=== PATIENT | female | born 1955 | race Caucasian/White ===

== ENCOUNTER 2023-08-10 03:20 | Emergency (ER) | payer MEDICARE, BC, SELFPAY ==
[2023-08-10 03:20] VITALS: BMI 30.8
[2023-08-10 03:22] VITALS: BP 132/60
[2023-08-10 04:33] VITALS: BP 115/79
--- NOTE | 2023-08-10 04:45 | ED.GENMED ---
History of Present Illness
General
Chief Complaint: Visual Problem
Source: patient and family
Exam Limitations: none
Time Seen by Provider: 08/10/23 04:36
Nursing documentation reviewed up to this point in time: agreed with
Travel History
Have you had any contact with someone who has COVID-19?: No
Do you have any symptoms of coronavirus? Fever > 100 degrees, chills, cough, shortness of breath, sore throat, loss of taste or smell, muscle aches, or headache?: No
History of Present Illness
History of Present Illness:
This a pleasant 68-year-old female that presents with left-sided rib pain, shortness of breath leg cramping on the right and tingling on the right arm. She also did have right eye blurriness which has now resolved. Patient flew back from the
[facility] on Thursday evening. She states that the symptoms began after returning home with the exception of the rib pain. While hiking in the [facility] [place], she had a mechanical fall and injured her left rib.
Vital signs are stable. Patient not hypoxic
Nursing note reviewed. I agree with nursing documentation up to this point in time.
Home Meds and allergies reviewed.
NUMBER AND COMPLEXITY OF PROBLEMS ADDRESSED AT THE ENCOUNTER
� Chronic conditions affecting care: Diabetic, syncopal episodes, left bundle branch block, hyperlipidemia
� Acute Exacerbation and/or Progression of Chronic Illness: None
� Differential Diagnosis includes: Electrolyte deficiency, pulmonary embolus, DVT
AMOUNT AND/OR COMPLEXITY OF DATA TO BE REVIEWED AND ANALYZED
I performed an independent evaluation of the following and my interpretation is:
EKG:
CT:CTA chest PE 03/16/2020
IMPRESSION:
CT head:
No evidence for traumatic injury.
No acute intracranial findings
Age-appropriate global cerebral volume loss
CTA chest PE:
No evidence for traumatic injury
Technically adequate contrast opacification of the pulmonary arteries.
No evidence for pulmonary embolism
No acute thoracic aortic pathology
Normal sized heart
Pericardium appears within normal limits
Lungs clear. No evidence for pneumonia or pulmonary edema
Minimal bilateral dependent atelectasis
No pleural effusion or pneumothorax
Post sleeve gastrectomy anatomy
Cholecystectomy
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
Generalized osteopenia
Report faxed directly at 6:25 AM ET
X-rays:
Ultrasound: Ultrasound of the leg is negative for DVT
Laboratory Studies: D-dimer is 1.21
Other:
Review of other/old records: Echocardiogram, 05/14/2023ONCLUSIONS
�1.� Left ventricle: Normal size and low normal to mildly reduced LVEF estimated
�40-50% by visual estimation.� A septal bounce was noted from left bundle branch
�block.� Definity contrast was utilized to improve endocardial definition.�
�2.� Right ventricle: Normal
�3.� Atria: Normal
�4.� Mitral valve: Trace mitral regurgitation
�5.� Aortic valve: Thickened and trileaflet.� Sclerotic.� No aortic
�insufficiency
�6.� Tricuspid valve: No tricuspid regurgitation.� Estimated pulmonary artery
�systolic pressures could not be obtained
�7.� When compared to the most recent echocardiogram from 02/10/2023 the LVEF is
�now estimated 40-50% rather than 35% as estimated on the prior study.� The
�studies are otherwise unchanged.
Clinical information was obtained by an independent historian:
Prescriptions/Medications Considered but not given:
Further testing considered but not performed:
RISK OF COMPLICATIONS AND/OR MORBIDITY OR MORTALITY OF PATIENT MANAGEMENT
Social determinants of health affecting care: Good Social Support
Discussion with other providers:
Escalation of care including admission/observation vs risk of discharge considered:
CRITICAL CARE NOTE:
Total Time (exclusive of procedures):
Update:
Past History
Past History
ED Past Medical History: Arrthythmia (Syncopal event, w/ LOOP), Asthma, Cancer, GERD, Hypercholesterolemia, NIDDM, Hypothyroidism, Psychiatric and Other (Sleep apnea uses CPAP, LBBB, Renal calculs, Anemia)
ED Past Surgical History: Cardiac (Loop recorder), Cholecystectomy, , Orthopedic (Lumbar laminectomy, Left meniscus repair, Left total knee replacement) and Other (gastric lap band with removal, Breast reduction, Vertical sleeve); Negative
Bowel resection
Social History
Tobacco: Non-smoker
Alcohol: Occasional
Drug: None
Personal:
Living: with family
Employment: Retired
Family History
Family History: Diabetes and Hypertension; Negative Sudden
Phy Exam
General Physical Exam
General Presentation: well appearing and mild distress
General age: appears stated age
General Skin: warm
General Habitus: normal
General Mental: alert
General Hydration: appears well hydrated
ENT Exam
ENT Exam: EOMI, pharynx normal, neck supple and normocephalic
Eye Exam
Eye Exam: PERRL, cornea clear and conjunctiva normal
Cardiovascular Exam
Cardiovascular Exam: regular rate/rhythm and no edema
Pulmonary Exam
Pulmonary Exam: lungs clear, no respiratory distress, no rales, no crackles, no rhonchi, no stridor, no wheezing and no cough
Gastrointestinal Exam
Gastrointestinal Exam: normal bowel sounds, non tender, soft and non distended
Palpation: left upper quadrant: Minimal tenderness, left lower quadrant: No tenderness, right upper quadrant: No tenderness, right lower quadrant: No tenderness and generalized: No tenderness
Neurological Exam
Neurological Exam: alert, oriented x3, no motor deficits and speech normal
Musculoskeletal Exam
Musculoskeletal Exam: full ROM and no edema
Skin Exam
Skin Exam: normal color, warm/dry, no rash and no petechia
Psychiatric Exam
Psychiatric Exam: normal mood/affect
Course
Orders/Labs/Results
Orders:
Orders
08/10/23 04:45
CT Chest Pe Study Urgent
Comment:
Reason For Exam: dyspnea, after 10hr flight, L rib trauma
08/10/23 04:49
US Periph Venous LOWER Ext RT Urgent
Comment:
Reason For Exam: calf tenderness s/p flight
08/10/23 04:52
Complete Blood Count/With Diff Urgent
Comprehensive Metabolic Panel Urgent
D-Dimer Urgent
Lipase Urgent
Magnesium Urgent
PTT Urgent
Prothrombin Time Urgent
TSH Urgent
Troponin I Urgent
08/10/23 04:53
CT Head W/o Iv Contrast Urgent
Comment:
Reason For Exam: blurry vision, resolved
08/10/23 06:11
Electrocardiogram (*1) Urgent
Reason for Study: Chest Pain
08/10/23 06:12
EKG- Treatment ONCE
Abnormal Lab Results
08/10/23
04:52
MPV 10.9 H fL
(7.4-10.4)
Abs Immat Gran (auto) 0.1 H 10^3/uL
(0-0.05)
Absolute Monos (auto) 0.7 H 10^3/uL
(0.1-0.6)
Immature Gran % 0.6 H %
(0-0.5)
D-Dimer 1.21 H ug/mlFEU
(0.00-0.50)
BUN 24 H mg/dl
(7-17)
Glucose 142 H mg/dl
(70-99)
08/10/23 04:52
08/10/23 04:52
Vital Signs
Initial and Last Documented VS:
Initial Vital Signs
Temp Pulse Resp BP Pulse Ox
97.4 F 68 18 132/60 100
08/10/23 03:22 08/10/23 03:22 08/10/23 03:22 08/10/23 03:22 08/10/23 03:22
Last Documented Vital Signs
Temp Pulse Resp BP Pulse Ox
97.4 F 68 26 115/79 98
08/10/23 03:22 08/10/23 03:22 08/10/23 04:33 08/10/23 04:33 08/10/23 04:33
*Critical Care Note
Total Time (30-74mins, 75-104mins- exclusive of procedures): Not Applicable
Update Note
Update Note:
Discussed CAT scan and lab work at length with patient and . She is feeling better. She was given incentive spirometer. She was advised to repeat ultrasound should the cramping persist in a week's time. D-dimer was elevated likely from
the fall. Patient resting comfortably in no acute distress at this time. Patient wishes to be discharged home. Discussed return to ER instructions at length with patient and . I feel that she will return should she have any changing or
worsening of symptoms.
ED Attending Note
-
Portions of this chart may have been created with voice recognition software.� Occasional wrong word or��sound alike� substitutions may have occurred due to the inherent limitations of voice recognition software.
Discharge Plan
Departure
Patient Disposition: Home (Routine Discharge)
Date of Disposition: 08/10/23
Time of Disposition: 06:36
Patient with high blood pressure during this ER visit?: No
Condition: Good
Discharge Problem:
Contusion of rib on left side, Leg cramps, Blurred vision
Instructions: How to Use an Incentive Spirometer, Muscle and Bone Pain (DC), Nocturnal (Nighttime) Leg Cramps (DC), Bruised Rib (DC)
Prescriptions:
No Action
levothyroxine 50 MCG tablet
50 mcg PO DAILY
venlafaxine [Effexor XR] 37.5 MG capsule,extended release 24hr
37.5 mg PO DAILY
venlafaxine [Effexor XR] 150 MG capsule,extended release 24hr
150 mg PO DAILY
rosuvastatin 5 MG tablet
5 mg PO Q48H
acetaminophen 650 mg Tablet Extended Release
1,300 mg PO Q12H
Janumet XR 50-500 mg Tablet, Er Multiphase 24 Hr
2 tab PO QPM
Hold Instructions: Resume on 02/12/23.
carvedilol 3.125 mg Tablet
3.125 mg PO BID Qty: 60 11RF
losartan 25 mg Tablet
25 mg PO DAILY Qty: 30 11RF
Referrals:
Karon Pineda MD [Family Provider] -
Activity Restrictions/Additional Instructions:
Tylenol and Motrin for the pain
It was a pleasure meeting you and taking part in your care. We hope for your continued healing and wellness.
Please read discharge instructions in their entirety. However, they are for general education and may not describe your exact diagnosis at discharge. Information on your ER visit and medical conditions were discussed with you along with appropriate
follow up information...
If indicated, please take your medications as instructed and indicated on discharge paperwork.
Please schedule a follow up appointment as directed. Call to schedule an appointment
Please return to the emergency department with ANY change in, persisting, or worsening of symptoms. If any of your symptoms do not improve, or persist, or become more severe within 6-12 hours, please return to the emergency department for further
care.
Please return to the emergency department if you develop a headache, neck pain/stiffness, fever greater than 100.4F, chest pain, shortness of breath, persistent nausea, vomiting, slurred speech, difficulty walking, numbness/tingling, weakness, signs
of infection or any other symptoms that are worrisome to you.
If you have any questions or concerns please do not hesitate to call the Hospital at or E-mail me directly at [email or web address]
Interventions
Interventions:
*Risk Screen - Suicide Last Done: 08/10/23 03:22
*General Assessment Last Done: 08/10/23 04:47
*Neglect/Abuse Screening Last Done: 08/10/23 03:22
*ED COVID-19 Vaccine History Last Done: 08/10/23 04:47
ED-Skin Assessment Last Done: 08/10/23 05:02
ED-Peripheral Vascular Assessment Last Done: 08/10/23 05:10
ED- Neurological Assessment Last Done: 08/10/23 05:02
ED-Musculoskeletal Assessment Last Done: 08/10/23 05:02
ED-EENT Assessment Last Done: 08/10/23 05:02
ED Swallowing Screen Last Done: 08/10/23 05:02
[2023-08-10 05:00] VITALS: BP 117/68
[2023-08-10 05:05] LABS: % Basophils 0.7 % (0-2); % Eosinophils 3.2 % (0-6); % Immature Granulocytes 0.6 % (0-0.5); % Lymphocytes 25.7 % (20.5-51.1); % Monocytes 7.4 % (1.7-9.3); % Neutrophils 62.4 % (42.2-75.2); Absolute Basophils 0.1 10^3/uL (0-0.2); Absolute Eosinophils 0.3 10^3/uL (0-0.7); Absolute Immature Granulocytes 0.1 10^3/uL (0-0.05); Absolute Lymphocytes 2.3 10^3/uL (1.2-3.4); Absolute Monocytes 0.7 10^3/uL (0.1-0.6); Absolute Neutrophils 5.5 10^3/uL (1.4-6.5); Hematocrit 40.8 % (37.0-47.0); Hemoglobin 13.7 g/dL (12.0-16.0); Mean Corp Hgb Conc. 33.6 g/dL (33.0-37.0); Mean Corpuscular Hgb 28.8 pg (27.0-31.0); Mean Corpuscular Volume 85.7 fL (81.0-99.0); Mean Platelet Volume 10.9 fL (7.4-10.4); Nucleated Red Blood Cells % 0 %; Platelet Count 180 10^3/uL (130-400); Red Blood Cell Count 4.76 10^6/uL (4.20-5.40); Red Cell Dist. Width 13.2 % (11.5-14.5); White Blood Cell Count 8.8 10^3/uL (4.8-10.8)
[2023-08-10 05:19] LABS: ALT (SGPT) 18 U/L (0-35); AST (SGOT) 24 U/L (14-36); Albumin 4.5 g/dl (3.5-5.0); Alkaline Phosphatase 71 U/L (38-126); Blood Urea Nitrogen 24 mg/dl (7-17); Calcium 9.5 mg/dl (8.4-10.2); Carbon Dioxide 25 mmol/L (22-30); Chloride 102 mmol/L (98-107); Estimated Creatinine Clearance 90 ml/min; Glucose 142 mg/dl (70-99); Lipase 51 U/L (23-300); Magnesium 1.7 mg/dl (1.6-2.3); Potassium 4.4 mmol/L (3.5-5.1); Sodium 135 mmol/L (135-145); Total Bilirubin 0.7 mg/dl (0.2-1.3); Total Protein 7.1 g/dl (6.3-8.2); eGFR > 60.00
[2023-08-10 05:23] LABS: INR 0.99; PT 12.9 Sec (11.4-14.6)
[2023-08-10 05:24] LABS: APTT 30.6 Sec (23.4-35.0)
[2023-08-10 05:26] LABS: D-Dimer 1.21 ug/mlFEU (0.00-0.50)
[2023-08-10 05:36] LABS: Troponin I < 0.012 ng/ml
[2023-08-10 05:50] LABS: TSH 1.56 uIU/ml (0.47-4.68)
[2023-08-10 06:24] VITALS: BP 131/70
== END 2023-08-10 06:58 | disposition home or self-care (01) ==
LOC: EMR 03:20
PROVIDERS: EMERGENCY PHYSICIAN Student in an Organized Health Care Education/Training Program; FAMILY PHYSICIAN Family Medicine
DX: S20.212A Contusion of left front wall of thorax, initial encounter (principal); R25.2 Cramp and spasm; R06.02 Shortness of breath; H53.8 Other visual disturbances; R20.2 Paresthesia of skin; W19.XXXA Unspecified fall, initial encounter; Y93.01 Activity, walking, marching and hiking; Y92.89 Other specified places as the place of occurrence of the external cause; J45.909 Unspecified asthma, uncomplicated; K21.9 Gastro-esophageal reflux disease without esophagitis; E78.00 Pure hypercholesterolemia, unspecified; E11.9 Type 2 diabetes mellitus without complications; E03.9 Hypothyroidism, unspecified; G47.30 Sleep apnea, unspecified; M85.80 Other specified disorders of bone density and structure, unspecified site; K57.92 Diverticulitis of intestine, part unspecified, without perforation or abscess without bleeding; I44.7 Left bundle-branch block, unspecified; D64.9 Anemia, unspecified; M19.90 Unspecified osteoarthritis, unspecified site; M79.7 Fibromyalgia; Z96.652 Presence of left artificial knee joint; Z87.442 Personal history of urinary calculi; Z86.16 Personal history of COVID-19; Z90.49 Acquired absence of other specified parts of digestive tract; Z98.84 Bariatric surgery status; Z88.8 Allergy status to other drugs, medicaments and biological substances; Z91.030 Bee allergy status
CPT/HCPCS: 99285; 70450; 71275; 80053; 83690; 83735; 84443; 84484; 85025; 85379; 85610; 85730; 93971; Q9967

== ENCOUNTER → 2023-08-17 13:31 | Outpatient (REF) | payer MEDICARE, BC, SELFPAY | LOC: RAD 13:31 | PROVIDERS: ATTENDING PHYSICIAN Nurse Practitioner Family | DX: R07.81 Pleurodynia (principal) | CPT/HCPCS: 71101 ==

== ENCOUNTER → 2023-08-20 06:26 | Day surgery (SDC) | payer MEDICARE, BC, SELFPAY ==
[2023-08-20 07:52] LABS: Glucose - Point of Care 145 mg/dl (70-99)
== END ==
LOC: GI 06:26
PROVIDERS: ATTENDING PHYSICIAN Internal Medicine
DX: K29.70 Gastritis, unspecified, without bleeding (principal); K31.84 Gastroparesis; K44.9 Diaphragmatic hernia without obstruction or gangrene; K21.9 Gastro-esophageal reflux disease without esophagitis; R13.10 Dysphagia, unspecified; R12 Heartburn; Z98.84 Bariatric surgery status
CPT/HCPCS: 43239; 88305; 82962; 88342

== ENCOUNTER → 2023-09-01 14:59 | Outpatient (REF) | payer MEDICARE, BC, SELFPAY | LOC: RAD 14:59 | PROVIDERS: ATTENDING PHYSICIAN Internal Medicine; FAMILY PHYSICIAN Family Medicine | DX: M81.0 Age-related osteoporosis without current pathological fracture (principal) | CPT/HCPCS: 77080 ==

== ENCOUNTER → 2023-09-23 08:54 | Outpatient (REF) | payer MEDICARE, BC, SELFPAY | LOC: HWRAD 08:54 | PROVIDERS: ATTENDING PHYSICIAN Nurse Practitioner Family | DX: R14.0 Abdominal distension (gaseous) (principal) | CPT/HCPCS: 76700 ==

== ENCOUNTER → 2023-09-30 07:16 | Outpatient (REF) | payer MEDICARE, BC, SELFPAY | LOC: HWRAD 07:16 | PROVIDERS: ATTENDING PHYSICIAN Nurse Practitioner Family; REFERRING PHYSICIAN Internal Medicine | DX: R14.0 Abdominal distension (gaseous) (principal) | CPT/HCPCS: 74177; Q9967 ==

== ENCOUNTER → 2023-10-22 08:52 | Outpatient (REF) | payer MEDICARE, BC, SELFPAY ==
[2023-10-22 11:02] LABS: Vitamin D, 25-OH*** 26.3 ng/mL (30-80)
[2023-10-22 11:49] LABS: Microalbumin, Random Urine 0.6 mg/dl (0.6-1.7)
[2023-10-22 11:53] LABS: Glycohemoglobin (HgbA1c) 6.9 % (4.0-5.6)
[2023-10-22 11:59] LABS: Microalbumin/creatinine Ratio 4.3 mg/g
[2023-10-22 12:13] LABS: ALT (SGPT) 14 U/L (0-35); AST (SGOT) 22 U/L (14-36); Albumin 4.3 g/dl (3.5-5.0); Alkaline Phosphatase 64 U/L (38-126); Blood Urea Nitrogen 22 mg/dl (7-17); Calcium 9.7 mg/dl (8.4-10.2); Carbon Dioxide 26 mmol/L (22-30); Chloride 102 mmol/L (98-107); Glucose 142 mg/dl (70-99); Potassium 4.5 mmol/L (3.5-5.1); Sodium 141 mmol/L (135-145); Total Bilirubin 0.6 mg/dl (0.2-1.3); Total Protein 6.7 g/dl (6.3-8.2); eGFR > 60.00
== END ==
LOC: REG 08:52
PROVIDERS: ATTENDING PHYSICIAN Internal Medicine; FAMILY PHYSICIAN Family Medicine; REFERRING PHYSICIAN Internal Medicine Endocrinology, Diabetes & Metabolism
DX: E11.9 Type 2 diabetes mellitus without complications (principal); M81.0 Age-related osteoporosis without current pathological fracture; Z51.81 Encounter for therapeutic drug level monitoring
CPT/HCPCS: 36415; 80053; 82043; 82306; 82570; 83036

== ENCOUNTER → 2023-12-01 14:40 | Outpatient (REF) | payer MEDICARE, BC, SELFPAY | LOC: HWRAD 14:40 | PROVIDERS: ATTENDING PHYSICIAN Internal Medicine Endocrinology, Diabetes & Metabolism; FAMILY PHYSICIAN Family Medicine | DX: E03.9 Hypothyroidism, unspecified (principal) | CPT/HCPCS: 76536 ==

== ENCOUNTER → 2024-01-07 20:16 | Outpatient (REF) | payer MEDICARE, BC, SELFPAY | LOC: MRI 20:16 | PROVIDERS: ATTENDING PHYSICIAN Physician Assistant Surgical; FAMILY PHYSICIAN Family Medicine | DX: M54.12 Radiculopathy, cervical region (principal); M54.2 Cervicalgia; R20.2 Paresthesia of skin | CPT/HCPCS: 72141 ==

== ENCOUNTER → 2024-01-15 07:38 | Outpatient (REF) | payer MEDICARE, BC, SELFPAY ==
[2024-01-15 09:28] LABS: Blood Urea Nitrogen 17 mg/dl (7-17); Carbon Dioxide 28 mmol/L (22-30); Chloride 104 mmol/L (98-107); Glucose 133 mg/dl (70-99); Potassium 4.4 mmol/L (3.5-5.1); Sodium 138 mmol/L (135-145); eGFR > 60.00
== END ==
LOC: REG 07:38
PROVIDERS: ATTENDING PHYSICIAN Internal Medicine Cardiovascular Disease; FAMILY PHYSICIAN Family Medicine; REFERRING PHYSICIAN Internal Medicine Endocrinology, Diabetes & Metabolism
DX: I10 Essential (primary) hypertension (principal)
CPT/HCPCS: 36415; 80048

== ENCOUNTER → 2024-01-19 08:58 | Outpatient (REF) | payer MEDICARE, BC, SELFPAY ==
[2024-01-19 10:10] LABS: % Basophils 0.8 % (0-2); % Eosinophils 3.9 % (0-6); % Immature Granulocytes 0.2 % (0-0.5); % Lymphocytes 30.9 % (20.5-51.1); % Monocytes 7.4 % (1.7-9.3); % Neutrophils 56.8 % (42.2-75.2); Absolute Basophils 0.1 10^3/uL (0-0.2); Absolute Eosinophils 0.2 10^3/uL (0-0.7); Absolute Lymphocytes 1.8 10^3/uL (1.2-3.4); Absolute Monocytes 0.4 10^3/uL (0.1-0.6); Absolute Neutrophils 3.4 10^3/uL (1.4-6.5); Hematocrit 36.7 % (37.0-47.0); Hemoglobin 11.8 g/dL (12.0-16.0); Mean Corp Hgb Conc. 32.2 g/dL (33.0-37.0); Mean Corpuscular Hgb 27.9 pg (27.0-31.0); Mean Corpuscular Volume 86.8 fL (81.0-99.0); Mean Platelet Volume 11.6 fL (7.4-10.4); Nucleated Red Blood Cells % 0 %; Platelet Count 149 10^3/uL (130-400); Red Blood Cell Count 4.23 10^6/uL (4.20-5.40); Red Cell Dist. Width 12.7 % (11.5-14.5)
[2024-01-19 10:43] LABS: ALT (SGPT) 15 U/L (0-35); AST (SGOT) 24 U/L (14-36); Albumin 4.3 g/dl (3.5-5.0); Alkaline Phosphatase 54 U/L (38-126); Blood Urea Nitrogen 16 mg/dl (7-17); Calcium 9.4 mg/dl (8.4-10.2); Carbon Dioxide 29 mmol/L (22-30); Chloride 101 mmol/L (98-107); Glucose 137 mg/dl (70-99); Sodium 140 mmol/L (135-145); Total Bilirubin 0.5 mg/dl (0.2-1.3); Total Protein 6.6 g/dl (6.3-8.2); eGFR > 60.00
[2024-01-19 11:08] LABS: TSH Reflex To Free T4 0.72 uIU/ml (0.47-4.68)
[2024-01-19 13:25] LABS: Glycohemoglobin (HgbA1c) 6.3 % (4.0-5.6)
== END ==
LOC: REG 08:58
PROVIDERS: ATTENDING PHYSICIAN Nurse Practitioner Family
DX: E11.9 Type 2 diabetes mellitus without complications (principal); I10 Essential (primary) hypertension; E78.2 Mixed hyperlipidemia
CPT/HCPCS: 36415; 80053; 83036; 84443; 85025

== ENCOUNTER → 2024-02-12 09:09 | Outpatient (REF) | payer MEDICARE, BC, SELFPAY ==
--- NOTE | 2024-02-12 11:39 | CARDSERVDEF ---
Echocardiogram with Definity completed after protocol screening completed. Allergies verified.
Patent IV site: right hand with 22g angio on 1st attempt
IV site flushed with 0.9% NaCl pre and post administration.
Diluted bolus method utilized to enhance visualization of ventricular torres.
Total volume given: 2 mL
Patient tolerated all procedures well without complications.
Upon completion of study, IV was removed and pressure held until hemostasis obtained. No complications noted.
== END ==
LOC: RCS 09:09
PROVIDERS: ATTENDING PHYSICIAN Internal Medicine Cardiovascular Disease; FAMILY PHYSICIAN Family Medicine
DX: I42.8 Other cardiomyopathies (principal); R06.09 Other forms of dyspnea
CPT/HCPCS: 93306; Q9957

== ENCOUNTER 2024-02-27 12:00 | Emergency (ER) | payer MEDICARE, BC, SELFPAY ==
[2024-02-27 12:04] VITALS: BP 120/69
--- NOTE | 2024-02-27 13:32 | ED.GENMED ---
History of Present Illness
General
Chief Complaint: Musculo-Skeletal Complaint
Source: patient
Exam Limitations: none
Time Seen by Provider: 02/27/24 13:18
Nursing documentation reviewed up to this point in time: agreed with
History of Present Illness
History of Present Illness:
68 yr old female who just got a pedicure was walking across the street and flip-flops and fell landing on her kneecap. She is unable to bear weight on her right knee. She does complain of small abrasion. Tetanus up-to-date. No other injuries.
She denies hitting her head
Past History
Past History
ED Past Medical History: Arrthythmia (Syncopal event, w/ LOOP), Asthma, Cancer, GERD, Hypercholesterolemia, NIDDM, Hypothyroidism, Psychiatric and Other (Sleep apnea uses CPAP, LBBB, Renal calculs, Anemia)
ED Past Surgical History: Cardiac (Loop recorder), Cholecystectomy, , Orthopedic (Lumbar laminectomy, Left meniscus repair, Left total knee replacement) and Other (gastric lap band with removal, Breast reduction, Vertical sleeve); Negative
Bowel resection
Social History
Tobacco: Non-smoker
Alcohol: Occasional
Drug: None
Personal:
Living: with family
Employment: Retired
Family History
Family History: Diabetes and Hypertension; Negative Sudden
Review of Systems
Review of Systems
Allergies reviewed?: Yes
All Other Systems: ROS reviewed and negative except as documented in HPI and ROS
Constitutional: Reports no symptoms
Musculoskeletal: Reports other (Right knee injury pain abrasion)
Skin: Reports no symptoms
Neurological: Reports no symptoms; Denies headache
Psychiatric: Reports no symptoms
Phy Exam
General Physical Exam
General Presentation: no apparent distress
General age: appears stated age
General Skin: warm and dry
General Habitus: normal
General Mental: alert
General Hydration: appears well hydrated
Neurological Exam
Neurological Exam: alert and oriented x3
Musculoskeletal Exam
Musculoskeletal Exam: other (Right extra stone pulses mild swelling to anterior knee with small abrasion mildly anterior tender however able to straight leg raise off the stretcher able to flex and extend)
Skin Exam
Skin Exam: normal color and warm/dry
Psychiatric Exam
Psychiatric Exam: normal mood/affect
Course
Orders/Labs/Results
Orders:
Orders
02/27/24 12:06
CR Knee- Right 4 Or More View* Urgent
Comment:
Reason For Exam: injury
02/27/24 13:45
Knee Immobilizer Right-Treatme ONCE
Vital Signs
Initial and Last Documented VS:
Initial Vital Signs
Temp Pulse Resp BP Pulse Ox
98.2 F 62 18 120/69 99
02/27/24 12:04 02/27/24 12:04 02/27/24 12:04 02/27/24 12:04 02/27/24 12:04
Last Documented Vital Signs
Temp Pulse Resp BP Pulse Ox
98.2 F 62 18 120/69 99
02/27/24 12:04 02/27/24 12:04 02/27/24 12:04 02/27/24 12:04 02/27/24 12:04
MDM/Problems Addressed
Differential Diagnosis Includes:
Not limited to contusion versus fracture abrasion
MDM/Problems Addressed:
Patient with comminuted fracture to the right kneecap after falling. She describes mechanical fall tripped on flip-flops while walking across the street. Denies hitting head. She has a comminuted fracture of the patella however able to straight
leg raise and has good range of motion will clean abrasion with soap and water dressed with antibiotic ointment and sterile dressing will apply immobilizer and DC with outpatient Ortho follow-up. Patient reports that she is followed by Dr. Du of
[place]. Case reviewed and Dr. Stephen was able to visualize x-rays on tiger text. as d c will dc home with immobilizer and weight bear as tolerated
*Radiology
Radiology exam reviewed: radiology read reviewed
*Pulse Oximetry
Patient hypoxic: no
*Critical Care Note
Total Time (30-74mins, 75-104mins- exclusive of procedures): Not Applicable
Patient Management
Discussion with other providers: Physiological Chemist (ortho DR Stephen )
ED Attending Note
-
Portions of this chart may have been created with voice recognition software.� Occasional wrong word or��sound alike� substitutions may have occurred due to the inherent limitations of voice recognition software.
Discharge Plan
Departure
Patient Disposition: Home (Routine Discharge)
Date of Disposition: 02/27/24
Time of Disposition: 14:19
Patient with high blood pressure during this ER visit?: No
Covid-19: Not Applicable
Discharge Problem:
Fracture, patella, Abrasion
Instructions: Knee Immobilizer (DC), Patella Fracture (DC)
Prescriptions:
No Action
levothyroxine 50 MCG tablet
50 mcg PO DAILY
venlafaxine [Effexor XR] 37.5 MG capsule,extended release 24hr
37.5 mg PO DAILY
venlafaxine [Effexor XR] 150 MG capsule,extended release 24hr
150 mg PO DAILY
rosuvastatin 5 MG tablet
5 mg PO Q48H
acetaminophen 650 mg Tablet Extended Release
1,300 mg PO Q12H
Janumet XR 50-500 mg Tablet, Er Multiphase 24 Hr
2 tab PO QPM
carvedilol 3.125 mg Tablet
3.125 mg PO BID Qty: 60 11RF
losartan 25 mg Tablet
25 mg PO DAILY Qty: 30 11RF
Referrals:
Karon Pineda MD [Family Provider] -
Tre Stephen MD [Active] -
Moe Alvarez MD [Active] -
Activity Restrictions/Additional Instructions:
As discussed wash abrasion with soap and water twice a day keep covered. You may apply antibiotic open to the area. Wear immobilizer and weight-bear as tolerated. Ice the affected area for the next 24 hours 20 min. at a time several times a
day. Keep elevated as much as possible. Follow-up with orthopedics. Call Thursday morning for appointment next week return if any worsening of symptoms.
Interventions
Interventions:
*General Assessment Last Done: 02/27/24 12:04
Discharge Date and Time
Print Language: OMANI
== END 2024-02-27 14:42 | disposition home or self-care (01) ==
LOC: EMR 12:00
PROVIDERS: EMERGENCY PHYSICIAN Emergency Medicine; FAMILY PHYSICIAN Family Medicine
DX: S82.001A Unspecified fracture of right patella, initial encounter for closed fracture (principal); S80.211A Abrasion, right knee, initial encounter; W19.XXXA Unspecified fall, initial encounter
CPT/HCPCS: 99283; 29505; 73564

== ENCOUNTER → 2024-03-14 09:34 | Outpatient (REF) | payer MEDICARE, BC, SELFPAY ==
[2024-03-14 10:53] LABS: % Basophils 0.5 % (0-2); % Eosinophils 1.4 % (0-6); % Immature Granulocytes 0.5 % (0-0.5); % Lymphocytes 23.9 % (20.5-51.1); % Monocytes 7.3 % (1.7-9.3); % Neutrophils 66.4 % (42.2-75.2); Absolute Eosinophils 0.1 10^3/uL (0-0.7); Absolute Monocytes 0.6 10^3/uL (0.1-0.6); Absolute Neutrophils 5.6 10^3/uL (1.4-6.5); Hematocrit 38.4 % (37.0-47.0); Hemoglobin 12.5 g/dL (12.0-16.0); Mean Corp Hgb Conc. 32.6 g/dL (33.0-37.0); Mean Corpuscular Hgb 27.7 pg (27.0-31.0); Mean Corpuscular Volume 85.1 fL (81.0-99.0); Mean Platelet Volume 11.5 fL (7.4-10.4); Nucleated Red Blood Cells % 0 %; Platelet Count 170 10^3/uL (130-400); Red Blood Cell Count 4.51 10^6/uL (4.20-5.40); Red Cell Dist. Width 14.9 % (11.5-14.5); White Blood Cell Count 8.4 10^3/uL (4.8-10.8)
[2024-03-14 11:21] LABS: Iron 65 ug/dl (37-170)
[2024-03-14 11:30] LABS: Percent Saturation 17 % (20-50); Total Iron Binding Capacity 380 ug/dl (265-497)
[2024-03-14 11:45] LABS: Ferritin 8.2 ng/ml (11.1-264.0)
== END ==
LOC: REG 09:34
PROVIDERS: ATTENDING PHYSICIAN Internal Medicine Hematology & Oncology; FAMILY PHYSICIAN Family Medicine
DX: D50.9 Iron deficiency anemia, unspecified (principal); D56.3 Thalassemia minor
CPT/HCPCS: 36415; 82728; 83540; 83550; 85025

== ENCOUNTER → 2024-03-21 15:27 | Outpatient (REF) | payer MEDICARE, BC, SELFPAY ==
[2024-03-21 14:08] LABS: % Basophils 0.4 % (0-2); % Eosinophils 1.3 % (0-6); % Immature Granulocytes 0.9 % (0-0.5); % Lymphocytes 24.6 % (20.5-51.1); % Monocytes 5.6 % (1.7-9.3); % Neutrophils 67.2 % (42.2-75.2); Absolute Eosinophils 0.1 10^3/uL (0-0.7); Absolute Immature Granulocytes 0.1 10^3/uL (0-0.05); Absolute Lymphocytes 2.5 10^3/uL (1.2-3.4); Absolute Monocytes 0.6 10^3/uL (0.1-0.6); Hematocrit 41.3 % (37.0-47.0); Hemoglobin 13.1 g/dL (12.0-16.0); Mean Corp Hgb Conc. 31.7 g/dL (33.0-37.0); Mean Corpuscular Hgb 27.3 pg (27.0-31.0); Mean Platelet Volume 11.5 fL (7.4-10.4); Nucleated Red Blood Cells % 0 %; Platelet Count 177 10^3/uL (130-400); Red Cell Dist. Width 15.3 % (11.5-14.5); White Blood Cell Count 10.3 10^3/uL (4.8-10.8)
[2024-03-21 20:07] LABS: Vitamin D, 25-OH*** 21.1 ng/mL (30-80)
== END ==
LOC: OIDL 15:27
PROVIDERS: ATTENDING PHYSICIAN Internal Medicine Hematology & Oncology
DX: D50.9 Iron deficiency anemia, unspecified (principal); D56.3 Thalassemia minor; Z98.84 Bariatric surgery status
CPT/HCPCS: 82306; 85025

== ENCOUNTER → 2024-03-28 16:02 | Outpatient (REF) | payer MEDICARE, BC, SELFPAY ==
[2024-03-28 14:57] LABS: % Basophils 0.4 % (0-2); % Immature Granulocytes 0.7 % (0-0.5); % Lymphocytes 20.9 % (20.5-51.1); % Monocytes 6.8 % (1.7-9.3); % Neutrophils 70.2 % (42.2-75.2); Absolute Eosinophils 0.1 10^3/uL (0-0.7); Absolute Immature Granulocytes 0.1 10^3/uL (0-0.05); Absolute Lymphocytes 2.1 10^3/uL (1.2-3.4); Absolute Monocytes 0.7 10^3/uL (0.1-0.6); Absolute Neutrophils 6.9 10^3/uL (1.4-6.5); Hematocrit 42.3 % (37.0-47.0); Hemoglobin 13.4 g/dL (12.0-16.0); Mean Corp Hgb Conc. 31.7 g/dL (33.0-37.0); Mean Corpuscular Volume 85.3 fL (81.0-99.0); Mean Platelet Volume 11.8 fL (7.4-10.4); Nucleated Red Blood Cells % 0 %; Platelet Count 241 10^3/uL (130-400); Red Blood Cell Count 4.96 10^6/uL (4.20-5.40); Red Cell Dist. Width 16.3 % (11.5-14.5); White Blood Cell Count 9.8 10^3/uL (4.8-10.8)
[2024-03-28 15:08] LABS: Phosphorus 1.7 mg/dl (2.5-4.5)
== END ==
LOC: OIDL 16:02
PROVIDERS: ATTENDING PHYSICIAN Internal Medicine Hematology & Oncology
DX: D50.9 Iron deficiency anemia, unspecified (principal)
CPT/HCPCS: 84100; 85025

== ENCOUNTER → 2024-05-09 08:52 | Outpatient (REF) | payer MEDICARE, BC, SELFPAY ==
[2024-05-09 10:08] LABS: % Basophils 0.6 % (0-2); % Eosinophils 2.6 % (0-6); % Immature Granulocytes 0.5 % (0-0.5); % Lymphocytes 31.5 % (20.5-51.1); % Monocytes 7.1 % (1.7-9.3); % Neutrophils 57.7 % (42.2-75.2); Absolute Eosinophils 0.2 10^3/uL (0-0.7); Absolute Monocytes 0.4 10^3/uL (0.1-0.6); Absolute Neutrophils 3.6 10^3/uL (1.4-6.5); Hematocrit 39.9 % (37.0-47.0); Hemoglobin 13.3 g/dL (12.0-16.0); Mean Corp Hgb Conc. 33.3 g/dL (33.0-37.0); Mean Corpuscular Hgb 30.4 pg (27.0-31.0); Mean Corpuscular Volume 91.1 fL (81.0-99.0); Mean Platelet Volume 11.5 fL (7.4-10.4); Nucleated Red Blood Cells % 0 %; Platelet Count 151 10^3/uL (130-400); Red Blood Cell Count 4.38 10^6/uL (4.20-5.40); Red Cell Dist. Width 16.8 % (11.5-14.5); White Blood Cell Count 6.2 10^3/uL (4.8-10.8)
[2024-05-09 10:41] LABS: ALT (SGPT) 15 U/L (0-35); AST (SGOT) 19 U/L (14-36); Albumin 4.2 g/dl (3.5-5.0); Alkaline Phosphatase 68 U/L (38-126); Blood Urea Nitrogen 8 mg/dl (7-17); Calcium 8.8 mg/dl (8.4-10.2); Carbon Dioxide 30 mmol/L (22-30); Chloride 106 mmol/L (98-107); Glucose 119 mg/dl (70-99); HDL Cholesterol 84 mg/dl; Iron 86 ug/dl (37-170); LDL Cholesterol, Calculated 34 mg/dl; Potassium 3.9 mmol/L (3.5-5.1); Sodium 142 mmol/L (135-145); Total Bilirubin 0.5 mg/dl (0.2-1.3); Total Cholesterol 149 mg/dl (50-199); Total Protein 6.4 g/dl (6.3-8.2); Triglyceride 157 mg/dl (10-149); Very Low Density Lipoprotein 31 mg/dl (0-30); eGFR > 60.00
[2024-05-09 10:48] LABS: Vitamin D, 25-OH*** 32.1 ng/mL (30-80)
[2024-05-09 10:50] LABS: Percent Saturation 30 % (20-50); Total Iron Binding Capacity 286 ug/dl (265-497)
[2024-05-09 13:56] LABS: Glycohemoglobin (HgbA1c) 5.8 % (4.0-5.6)
== END ==
LOC: REG 08:52
PROVIDERS: ATTENDING PHYSICIAN Internal Medicine Hematology & Oncology; FAMILY PHYSICIAN Family Medicine; REFERRING PHYSICIAN Nurse Practitioner Family
DX: D50.9 Iron deficiency anemia, unspecified (principal); D56.3 Thalassemia minor; Z98.84 Bariatric surgery status; E11.9 Type 2 diabetes mellitus without complications; E03.9 Hypothyroidism, unspecified; E78.5 Hyperlipidemia, unspecified
CPT/HCPCS: 36415; 80053; 80061; 82306; 82728; 83036; 83540; 83550; 85025

== ENCOUNTER → 2024-09-08 10:37 | Outpatient (REF) | payer MEDICARE, BC, SELFPAY ==
[2024-09-08 11:23] LABS: % Basophils 0.4 % (0-2); % Eosinophils 1.8 % (0-6); % Immature Granulocytes 0.3 % (0-0.5); % Lymphocytes 27.6 % (20.5-51.1); % Monocytes 6.4 % (1.7-9.3); % Neutrophils 63.5 % (42.2-75.2); Absolute Eosinophils 0.1 10^3/uL (0-0.7); Absolute Lymphocytes 1.9 10^3/uL (1.2-3.4); Absolute Monocytes 0.5 10^3/uL (0.1-0.6); Absolute Neutrophils 4.5 10^3/uL (1.4-6.5); Hematocrit 38.7 % (37.0-47.0); Hemoglobin 12.9 g/dL (12.0-16.0); Mean Corp Hgb Conc. 33.3 g/dL (33.0-37.0); Mean Corpuscular Hgb 31.1 pg (27.0-31.0); Mean Corpuscular Volume 93.3 fL (81.0-99.0); Mean Platelet Volume 10.7 fL (7.4-10.4); Nucleated Red Blood Cells % 0 %; Platelet Count 163 10^3/uL (130-400); Red Blood Cell Count 4.15 10^6/uL (4.20-5.40); Red Cell Dist. Width 12.1 % (11.5-14.5)
[2024-09-08 12:06] LABS: Iron 93 ug/dl (37-170)
[2024-09-08 12:15] LABS: Percent Saturation 30 % (20-50); Total Iron Binding Capacity 307 ug/dl (265-497)
== END ==
LOC: REG 10:37
PROVIDERS: ATTENDING PHYSICIAN Internal Medicine Hematology & Oncology; FAMILY PHYSICIAN Nurse Practitioner Family
DX: D50.9 Iron deficiency anemia, unspecified (principal); D56.3 Thalassemia minor; Z98.84 Bariatric surgery status
CPT/HCPCS: 36415; 82728; 83540; 83550; 85025

== ENCOUNTER → 2024-12-16 08:17 | Outpatient (REF) | payer MEDICARE, BC, SELFPAY ==
[2024-12-16 09:09] LABS: Hematocrit 42.2 % (37.0-47.0); Hemoglobin 14.1 g/dL (12.0-16.0); Mean Corp Hgb Conc. 33.4 g/dL (33.0-37.0); Mean Corpuscular Volume 92.5 fL (81.0-99.0); Nucleated Red Blood Cells % 0 %; Platelet Count 157 10^3/uL (130-400); Red Cell Dist. Width 11.7 % (11.5-14.5)
[2024-12-16 09:34] LABS: Iron 87 ug/dl (37-170)
[2024-12-16 09:44] LABS: Total Iron Binding Capacity 318 ug/dl (265-497)
[2024-12-16 10:07] LABS: Ferritin 227.0 ng/ml (11.1-264.0)
== END ==
LOC: REG 08:17
PROVIDERS: ATTENDING PHYSICIAN Nurse Practitioner Adult Health; FAMILY PHYSICIAN Family Medicine
DX: D50.9 Iron deficiency anemia, unspecified (principal); D56.3 Thalassemia minor; Z98.84 Bariatric surgery status
CPT/HCPCS: 82728; 83540; 83550; 85025

== ENCOUNTER 2024-12-19 06:23 | Day surgery (SDC) | payer MEDICARE, BC, SELFPAY ==
[2024-12-19 07:14] LABS: Glucose - Point of Care 120 mg/dl (70-99)
== END 2024-12-19 08:38 | disposition home or self-care (01) ==
LOC: GI 06:23
PROVIDERS: ATTENDING PHYSICIAN Internal Medicine; FAMILY PHYSICIAN Family Medicine
DX: Z12.11 Encounter for screening for malignant neoplasm of colon (principal); K64.9 Unspecified hemorrhoids; D12.8 Benign neoplasm of rectum; Z86.0101 Personal history of adenomatous and serrated colon polyps
CPT/HCPCS: 45385; 82962; 88305

== ENCOUNTER → 2024-12-19 17:25 | Outpatient (REF) | payer MEDICARE, BC, SELFPAY ==
[2024-12-19 18:28] LABS: ALT (SGPT) 49 U/L (0-35); AST (SGOT) 36 U/L (14-36); Albumin 4.3 g/dl (3.5-5.0); Alkaline Phosphatase 62 U/L (38-126); Blood Urea Nitrogen 6 mg/dl (7-17); Calcium 8.8 mg/dl (8.4-10.2); Carbon Dioxide 36 mmol/L (22-30); Chloride 100 mmol/L (98-107); Glucose 137 mg/dl (70-99); Potassium 4.2 mmol/L (3.5-5.1); Sodium 139 mmol/L (135-145); Total Protein 6.5 g/dl (6.3-8.2); eGFR > 60.00
[2024-12-19 18:49] LABS: Vitamin D, 25-OH*** 23.1 ng/mL (30-80)
== END ==
LOC: REG 17:25
PROVIDERS: ATTENDING PHYSICIAN Internal Medicine; FAMILY PHYSICIAN Family Medicine
DX: M81.0 Age-related osteoporosis without current pathological fracture (principal)
CPT/HCPCS: 36415; 80053; 82306

== ENCOUNTER → 2025-01-26 08:01 | Outpatient (REF) | payer MEDICARE, BC, SELFPAY ==
[2025-01-26 10:13] LABS: Glycohemoglobin (HgbA1c) 6.2 % (4.0-5.6)
[2025-01-26 10:19] LABS: HDL Cholesterol 95 mg/dl; LDL Cholesterol, Calculated 61 mg/dl; Very Low Density Lipoprotein 24 mg/dl (0-30)
[2025-01-26 10:36] LABS: Microalbumin, Random Urine 8.9 mg/dl (0.6-1.7)
[2025-01-26 10:41] LABS: Microalb - Urine Creatinine 205.500 mg/dl
== END ==
LOC: REG 08:01
PROVIDERS: ATTENDING PHYSICIAN Family Medicine
DX: E11.9 Type 2 diabetes mellitus without complications (principal)
CPT/HCPCS: 36415; 80061; 82043; 82570; 83036; 84443

== ENCOUNTER → 2025-03-03 13:06 | Outpatient (REF) | payer MEDICARE, BC, SELFPAY ==
[2025-03-03 14:26] LABS: Hematocrit 41.2 % (37.0-47.0); Hemoglobin 13.7 g/dL (12.0-16.0); Mean Corp Hgb Conc. 33.3 g/dL (33.0-37.0); Mean Corpuscular Volume 92.2 fL (81.0-99.0); Nucleated Red Blood Cells % 0 %; Platelet Count 159 10^3/uL (130-400); Red Cell Dist. Width 12.7 % (11.5-14.5)
[2025-03-03 15:36] LABS: Iron 83 ug/dl (37-170)
[2025-03-03 15:46] LABS: Total Iron Binding Capacity 311 ug/dl (265-497)
[2025-03-03 16:12] LABS: Ferritin 208.0 ng/ml (11.1-264.0)
== END ==
LOC: REG 13:06
PROVIDERS: ATTENDING PHYSICIAN Nurse Practitioner Adult Health; FAMILY PHYSICIAN Family Medicine
DX: D50.9 Iron deficiency anemia, unspecified (principal); D56.3 Thalassemia minor; Z98.84 Bariatric surgery status
CPT/HCPCS: 36415; 82728; 83540; 83550; 85025

== ENCOUNTER 2025-03-20 05:24 | Emergency (ER) | payer MEDICARE, BC, SELFPAY ==
[2025-03-20 05:29] VITALS: BP 123/68
[2025-03-20 05:30] VITALS: BP 123/68; BMI 26.6
[2025-03-20 05:47] LABS: Hematocrit 36.3 % (37.0-47.0); Hemoglobin 12.6 g/dL (12.0-16.0); Mean Corp Hgb Conc. 34.7 g/dL (33.0-37.0); Mean Corpuscular Volume 89.4 fL (81.0-99.0); Nucleated Red Blood Cells % 0 %; Platelet Count 141 10^3/uL (130-400); Red Cell Dist. Width 12.1 % (11.5-14.5)
[2025-03-20 06:00] VITALS: BP 124/65
[2025-03-20 06:01] LABS: ALT (SGPT) 13 U/L (0-35); AST (SGOT) 17 U/L (14-36); Albumin 4.1 g/dl (3.5-5.0); Alkaline Phosphatase 53 U/L (38-126); Blood Urea Nitrogen 12 mg/dl (7-17); Calcium 9.2 mg/dl (8.4-10.2); Carbon Dioxide 26 mmol/L (22-30); Chloride 107 mmol/L (98-107); Estimated Creatinine Clearance 71 ml/min; Glucose 161 mg/dl (70-99); Lipase 61 U/L (23-300); Sodium 139 mmol/L (135-145); Total Protein 6.2 g/dl (6.3-8.2); eGFR > 60.00
[2025-03-20 06:06] LABS: Potassium 4.0 mmol/L (3.5-5.1)
[2025-03-20 06:14] LABS: Troponin I < 0.012 ng/ml
--- NOTE | 2025-03-20 06:36 | EDRN ---
Patient resting with at bedside
--- NOTE | 2025-03-20 06:37 | ED.GENMED ---
History of Present Illness
General
Chief Complaint: Abdominal Symptoms
Time Seen by Provider: 03/20/25 06:06
History of Present Illness
History of Present Illness:
69-year-old female with history of [id number] diabetes, hyperlipidemia, left bundle branch block who presents to the emergency department for evaluation of acute onset of diarrhea associated with left abdominal/left chest/left shoulder
pain began approximately 10 PM last night. 2 episodes of diarrhea that has since resolved. Pain has improved but the left arm symptoms persist. Denies shortness of breath or pleuritic symptoms. No associated fevers, chills, or sweats. Last
cardiac cath was 2022 showing nonobstructive CAD
Past History
Past History
ED Past Medical History: Arrthythmia (Syncopal event, w/ LOOP), Asthma, Cancer, GERD, Hypercholesterolemia, NIDDM, Hypothyroidism, Psychiatric and Other (Sleep apnea uses CPAP, LBBB, Renal calculs, Anemia)
ED Past Surgical History: Cardiac (Loop recorder), Cholecystectomy, , Orthopedic (Lumbar laminectomy, Left meniscus repair, Left total knee replacement) and Other (gastric lap band with removal, Breast reduction, Vertical sleeve); Negative
Bowel resection
Social History
Tobacco: Non-smoker
Alcohol: Occasional
Drug: None
Personal:
Living: with family
Employment: Retired
Family History
Family History: Diabetes and Hypertension; Negative Sudden
Review of Systems
Review of Systems
Allergies reviewed?: Yes
All Other Systems: ROS reviewed and negative except as documented in HPI and ROS
Phy Exam
Physical Exam
Physical Exam:
GEN: Well appearing, NAD, WDWN
HEENT: Oral mucosa moist, no scleral icterus
Cardiac: Regular rate and rhythm, no murmur
Lung: No respiratory distress, no tachypnea, lungs clear to auscultation
Abdomen: Grossly nontender to palpation the abdomen, no rigidity
MSK: No gross deformity or injuries
Skin: Good color, no pallor or jaundice, no rashes
Neuro: AO x3, moves all extremities freely
Psych: Calm, cooperative
Course
Orders/Labs/Results
Orders:
Orders
03/20/25 05:29
Electrocardiogram (*1) Urgent
Reason for Study: Abdominal Pain
EKG- Treatment ONCE
IV Insert/Care/Rem.- Treatment PRN
03/20/25 05:38
Complete Blood Count/With Diff Urgent
Comprehensive Metabolic Panel Urgent
Lipase Urgent
Troponin I Urgent
03/20/25 06:36
EKG- Treatment ONCE
0.9% Sodium Chloride 1000 ml [Nss] 1,000 ml IV BOLUS
03/20/25 07:30
Electrocardiogram (*1) Urgent
Reason for Study: Chest Pain
03/20/25 07:35
Troponin I Routine
Abnormal Lab Results
03/20/25
05:38
RBC 4.06 L 10^6/uL
(4.20-5.40)
Hct 36.3 L %
(37.0-47.0)
MPV 10.5 H fL
(7.4-10.4)
Glucose 161 H mg/dl
(70-99)
Total Protein 6.2 L g/dl
(6.3-8.2)
03/20/25 05:38
03/20/25 05:38
Vital Signs
Initial and Last Documented VS:
Initial Vital Signs
BP
123/68
03/20/25 05:29
Last Documented Vital Signs
Temp Pulse Resp BP Pulse Ox
98.1 F 80 23 131/75 94
03/20/25 05:30 03/20/25 08:15 03/20/25 08:15 03/20/25 08:00 03/20/25 08:15
MDM/Problems Addressed
MDM/Problems Addressed:
Patient's symptoms gradually improved in the emergency department, likely self-limited viral syndrome. Doubt ACS or PE, lungs clear on exam, no reproducible abdominal tenderness warranting imaging
Comment
Comment:
EKG independently interpreted by me shows normal sinus rhythm at a rate of 66 with a left bundle branch block, comparable to prior EKG tracing
*Pulse Oximetry
SaO2: 99
Oxygen Mode of Delivery: Room air
Patient hypoxic: no
*Critical Care Note
Total Time (30-74mins, 75-104mins- exclusive of procedures): Not Applicable
ED Attending Note
-
Portions of this chart may have been created with voice recognition software.� Occasional wrong word or��sound alike� substitutions may have occurred due to the inherent limitations of voice recognition software.
Discharge Plan
Departure
Patient Disposition: Home (Routine Discharge)
Date of Disposition: 03/20/25
Time of Disposition: 08:25
Patient with high blood pressure during this ER visit?: No
Discharge Problem:
Acute viral syndrome
Instructions: Acute Diarrhea
Prescriptions:
No Action
levothyroxine 50 MCG tablet
50 mcg PO DAILY
venlafaxine [Effexor XR] 37.5 MG capsule,extended release 24hr
37.5 mg PO DAILY
venlafaxine [Effexor XR] 150 MG capsule,extended release 24hr
150 mg PO DAILY
rosuvastatin 5 MG tablet
5 mg PO Q48H
acetaminophen 650 mg Tablet Extended Release
1,300 mg PO Q12H
Janumet XR 50-500 mg Tablet, Er Multiphase 24 Hr
2 tab PO QPM
carvedilol 3.125 mg Tablet
3.125 mg PO BID Qty: 60 11RF
losartan 25 mg Tablet
25 mg PO DAILY Qty: 30 11RF
Referrals:
Karon Pinead MD [Family Provider, [facility]]
Interventions
Interventions:
*Risk Screen - Suicide Last Done: 03/20/25 05:30
*General Assessment Last Done: 03/20/25 05:30
*Neglect/Abuse Screening Last Done: 03/20/25 05:30
*ED- Fall Risk Assessment Last Done: 03/20/25 05:30
*ED COVID-19 Vaccine History Last Done: 03/20/25 08:52
*ED Influenza Vaccine History Last Done: 03/20/25 05:30
*Nursing Disposition Last Done: 03/20/25 08:52
YF-Ueogxi-Bshhewnbct Assessment Last Done: 03/20/25 05:47
Discharge Date and Time
Discharge Date/Time: 03/20/25 08:53
Print Language: URUGUAYAN
[2025-03-20] MEDS: NSS 1000 IV (06:42)
[2025-03-20 07:00] VITALS: BP 128/72
[2025-03-20 07:53] VITALS: BP 128/72
[2025-03-20 08:00] VITALS: BP 131/75
[2025-03-20 08:06] LABS: Troponin I < 0.012 ng/ml
== END 2025-03-20 08:53 | disposition home or self-care (01) ==
LOC: EMR 05:24
PROVIDERS: Physician Assistant; Student in an Organized Health Care Education/Training Program; EMERGENCY PHYSICIAN Emergency Medicine; FAMILY PHYSICIAN Family Medicine
DX: B34.9 Viral infection, unspecified (principal); R07.89 Other chest pain; R10.9 Unspecified abdominal pain; E03.9 Hypothyroidism, unspecified; E11.9 Type 2 diabetes mellitus without complications; E78.00 Pure hypercholesterolemia, unspecified; G47.30 Sleep apnea, unspecified; I25.10 Atherosclerotic heart disease of native coronary artery without angina pectoris; Z90.49 Acquired absence of other specified parts of digestive tract
CPT/HCPCS: 99284; 96360; 80053; 83690; 84484; 85025; 93005

== ENCOUNTER 2025-04-25 06:43 | Outpatient (RCR) | payer MEDICARE, BC, SELFPAY | END 2025-04-25 23:59 | disposition home or self-care (01) | LOC: RPT 06:43 | PROVIDERS: ATTENDING PHYSICIAN Surgery; FAMILY PHYSICIAN Family Medicine | DX: R15.9 Full incontinence of feces (principal); N39.41 Urge incontinence; Z73.6 Limitation of activities due to disability; M62.81 Muscle weakness (generalized); M54.50 Low back pain, unspecified | CPT/HCPCS: 97163; 97530 ==

== ENCOUNTER 2025-05-23 09:46 | Outpatient (RCR) | payer MEDICARE, BC, SELFPAY | END 2025-05-23 23:59 | disposition home or self-care (01) | LOC: RPT 09:46 | PROVIDERS: ATTENDING PHYSICIAN Surgery; FAMILY PHYSICIAN Family Medicine | DX: R15.9 Full incontinence of feces (principal); N39.41 Urge incontinence; Z73.6 Limitation of activities due to disability; M62.81 Muscle weakness (generalized); M54.50 Low back pain, unspecified; Z87.820 Personal history of traumatic brain injury; Z91.81 History of falling | CPT/HCPCS: 97110; 97112; 97140; 97530 ==